=== PATIENT | male | born 1975 | race Caucasian/White ===

== ENCOUNTER 2019-10-16 10:59 | Emergency (ER) | payer SELFPAY ==
[~2019-10-16] VITALS: Ht 182.9 cm; Wt 123.7 kg
[2019-10-16 11:09] VITALS: BP 157/110
--- NOTE | 2019-10-16 11:24 | NUR ---
COUGH X 3 DAYS, LUNGS FEEL "WEAK" SORENESS IN CHEST WHEN COUGHING
== END 2019-10-16 12:04 | disposition home or self-care (01) ==
LOC: ED 11:40
DX: J45.30 Mild persistent asthma, uncomplicated (principal); J06.9 Acute upper respiratory infection, unspecified; I10 Essential (primary) hypertension; F17.200 Nicotine dependence, unspecified, uncomplicated
CPT/HCPCS: 71046; 93005; 99283; J7512

== ENCOUNTER 2020-05-22 09:46 | Emergency (ER) | payer OTHER ==
[~2020-05-22] VITALS: Ht 167.6 cm; Wt 113.4 kg
--- NOTE | 2020-05-22 10:18 | NUR ---
PT TO IMAGING
--- NOTE | 2020-05-22 10:19 | NUR ---
45 Y/O MALE PRESENTS TO ED WITH C/O ABDOMINAL PAIN. PER PT "I'M HAVING BOWEL ISSUES. IT'S BEEN SINCE LAST MONDAY, SO 11 DAYS. IT HURTS FROM THE TOP OF MY BELLY TO MY GENITALS. I TRIED ENEMA'S AND TUMERIC. I HAD A BM THIS MORNING BUT IT WASN'T VERY PRODUCTIVE. I CAN PEE OK, BUT MY BLADDER HURTS FROM THE PRESSURE. I DID START A NEW DIET." PT PLACED ON CONT PULSE OX,NIBP. NO C/O N/V/D, TRAUMA, SYNCOPE, CP, SOB.
[2020-05-22] MEDS ORDERED: MORPHINE SULFATE 4 MG/ML, 1ML ONE ×2 (10:26→11:45)
[2020-05-22] MEDS ORDERED: ONDANSETRON 2MG/ML, 2ML ONE (10:26)
--- NOTE | 2020-05-22 10:28 | NUR ---
pt back from imaging.
[2020-05-22] MEDS ORDERED: ONDANSETRON 2MG/ML, 2ML IVPush ONE (10:30)
[2020-05-22] MEDS ORDERED: SODIUM CHLORIDE 0.9% 1,000ML IVBOLUS ONE (10:30)
[2020-05-22] MEDS: MORPHINE SULFATE 4 MG/ML, 1ML IVPush PRN ×2 (10:35→11:47)
--- NOTE | 2020-05-22 10:37 | NUR ---
PIV ESTABLISHED. PT TOLERATED WITH NO COMPLICATIONS. MEDICATIONS ADMINISTERED PER ORDER.
--- NOTE | 2020-05-22 10:55 | NUR ---
PT EDUCATED REGARDING THE NEED FOR URINE. PT GIVEN URINAL.
[2020-05-22 11:01] LABS: BASOPHILS # (AUTO) 0.04 x10^3/uL (0-0.1); BASOPHILS % (AUTO) 0 % (0-1); EOSINOPHILS # (AUTO) 0.12 x10^3/uL (0-0.4); EOSINOPHILS % (AUTO) 1 % (1-7); LYMPHOCYTES # (AUTO) 2.14 x10^3/uL (1-3.4); LYMPHOCYTES % (AUTO) 15 % (22-44); MD NO; MEAN CORPUSCULAR HEMOGLOBIN 32.1 pg (27.5-34.5); MEAN CORPUSCULAR HGB CONC 33.2 g/dL (33.2-36.2); MEAN PLATELET VOLUME 7.6 fL (7.4-10.4); MONOCYTES # (AUTO) 0.87 x10^3/uL (0.2-0.8); MONOCYTES % (AUTO) 6 % (2-9); NEUTROPHILS # (AUTO) 10.76 x10^3/uL (1.8-6.8); NEUTROPHILS % (AUTO) 77 % (42-75); PLATELET COUNT 295 x10^3/uL (130-400); RED BLOOD COUNT 5.21 x10^6/uL (4.38-5.82); RED CELL DISTRIBUTION WIDTH 12.5 % (9.4-14.8)
[2020-05-22 11:09] LABS: ALBUMIN 3.8 g/dL (3.4-5.0); ANION GAP 7 mmol/L (5-15); CALCIUM 9.4 mg/dL (8.5-10.1); CHLORIDE 107 mmol/L (98-107)
[2020-05-22 11:27] LABS: ALANINE AMINOTRANSFERASE 33 U/L (12-78); ALKALINE PHOSPHATASE 73 U/L (45-117); BILIRUBIN,TOTAL 0.8 mg/dL (0.2-1.0); TOTAL PROTEIN 8.2 g/dL (6.4-8.2)
--- NOTE | 2020-05-22 11:30 | NUR ---
PT AMBULATORY WITH STEADY GAIT TO BATHROOM. PT GIVEN URINE SAMPLE CUP.
--- NOTE | 2020-05-22 11:40 | NUR ---
UA SENT TO LAB. PT AMBULATED WITH STEADY GAIT BACK FROM BATHROOM. PT STANDING NEXT TO [facility]. PT REATTACHED TO ALL MONITORS.
[2020-05-22 11:42] VITALS: BP 160/93
--- NOTE | 2020-05-22 11:46 | NUR ---
PT STATED THAT HE UNABLE TO HAVE A BM.
[2020-05-22 12:00] LABS: MICROSCOPIC INDICATED
[2020-05-22] MEDS ORDERED: OMNIPAQUE 350 MG/ML, 150 ML BOTTLE ONE (12:18)
--- NOTE | 2020-05-22 12:22 | NUR ---
PT AT IMAGING
--- NOTE | 2020-05-22 12:27 | NUR ---
PT BACK FROM IMAGING.
[2020-05-22] MEDS ORDERED: CEFOTETAN PMX 1GM/50ML 50 ML ONE (12:33)
[2020-05-22] MEDS ORDERED: METRONIDAZOLE PMX 500MG/100ML 100 ML ONE (12:39)
--- NOTE | 2020-05-22 12:55 | NUR ---
BEDSIDE REPORT TO NADIA MARIE.
[2020-05-22] MEDS ORDERED: CEFOTETAN PMX 2GM/50ML 50 ML IV ONE (13:00)
--- NOTE | 2020-05-22 13:12 | NUR ---
PT CALLED AND EXPRESSED IRRITATION AND AGGITATION REGARDING HAVING TO WAIT FOR CALL LIGHT TO BE ANSWERED. PT STATED THAT HE WANTED TO BE DISCONNECTED FROM ALL MONITORS AND IV GGTS IN ORDER TO MOVE HIS TRUCK OUT OF THE SECURITY PARKING LOT. CONTACTED SECURITY AND REQUESTED THAT VEHICLE BE MOVED. SECURITY STATED THEY WOULD COME MOVE THE PTS VEHICLE.
--- NOTE | 2020-05-22 13:18 | NUR ---
THIS RN IN TO DISCUSS WITH PT THAT SECURITY WOULD BE ABLE TO MOVE HIS VEHICLE FOR HIM. PT EXTERMELY AGGITATED AND THROWING CALL LIGHT AND HIS KEYS. PT STATING THAT HE WOULD NOT ALLOW ANYONE TO MOVE HIS VEHICLE FOR HIM, HE WOULD DO IT HIMSELF. ATTEMPTED TO EDUCATE PT ON ORDER TO ADMIT AND HIS IV MEDICATION CURRENTLY INFUSING/REASONING HE COULD NOT LEAVE THE HOSPITAL WITH IV INTACT. PT REFUSED INFORMATION AND STATED HE WAS CHECKING HIMSELF OUT. PT BEGAN RIPPING ALL MONITOR OFF. REQUESTED PT TO STOP AND ALLOW THIS RN TO REMOVE HIS IV FOR HIM. DISCUSSED WHAT AMA MEANT, PT STATED HE DID NOT CARE. IV REMOVED WITH TIP INTACT AND DRESSED SELF.
--- NOTE | 2020-05-22 13:20 | NUR ---
1315 CALL LIGHT ANSWERED. PT STATING "I NEED TO BE DISCONNECTED SO I CAN MOVE MY TRUCK OUT OF ER PARKING LOT". CONFIRMED WITH PT THAT VEHICLE IS PARKED IN ER DROP OFF AREA. PT INFORMED THAT SECURITY CAN MOVE VEHICLE AND THAT WE CANNOT ALLOW PT TO LEAVE ED WITH IV IN PLACE AND BECAUSE MORPHINE HAD BEEN ADMINISTERED EARLIER. PT STATES "NOBODY IS TOUCHING MY FUCKING TRUCK". PT AGITATED AND STARTS TAKING OFF MONITORING EQUIPMENT. ASSISTANCE IS NEEDED IN OTHER PT ROOM AND PT INFORMED THAT THIS RN WILL BE BACK IN 5 MINUTES TO DISCUSS FURTHER. 1320 SECURITY OUTSIDE OF PT ROOM, BRANDON TAKING IV OUT, THIS RN INFORMED PT IS CHECKING OUT AMA. THIS RN STATES AGAIN TO PT THAT HE IS CONSIDERED IMPAIRED TO DRIVE AND CANNOT LEAVE IN VEHICLE THAT [employer] WILL NEED TO BE CALLED. PT CONTINUES TO BE AGITATED AND SHOWS AN AGGRESSIVE PHYSICAL POSTURING TOWARD THIS RN AND STATES "I AM LEAVING". SECURITY AND BRANDON RN WITNESSED EVENT. SECURITY ESCORTS PT OUT.
--- NOTE | 2020-05-22 13:25 | NUR ---
SECURITY ESCORTED PT OUT OF ED. PT LEFT WITH STEADY GAIT, AGGITATED AND IN NO DISTRESS.
[2020-05-22] MEDS ORDERED: SODIUM CHLORIDE 0.9% 1,000 ML IV SCH (13:41)
[2020-05-22] MEDS ORDERED: METRONIDAZOLE PMX 500MG/100ML 100 ML IV ONE (14:00)
[2020-05-22] MEDS ORDERED: METRONIDAZOLE PMX 500MG/100ML 100 ML IV SCH (14:00)
[2020-05-22] MEDS ORDERED: ENALAPRILAT 1.25 MG/ML, 2ML IVPush PRN (14:00)
[2020-05-22] MEDS ORDERED: ONDANSETRON ODT 4 MG PO PRN (14:00)
[2020-05-22] MEDS ORDERED: HYDROcodone/APAP 5/325 TABLET PO PRN (14:00)
[2020-05-22] MEDS ORDERED: ACETAMINOPHEN 325 MG TABLET PO PRN (14:00)
[2020-05-22] MEDS ORDERED: DIPHENHYDRAMINE 25 MG CAPSULE PO PRN (14:00)
[2020-05-22] MEDS ORDERED: CEFTRIAXONE PMX 2GM/50ML 50 ML IV SCH (14:00)
[2020-05-22] MEDS ORDERED: ONDANSETRON 2MG/ML, 2ML IVPush PRN (14:00)
[2020-05-22] MEDS ORDERED: morphine SULFATE 10 MG/ML, 1ML IVPush PRN (14:00)
[2020-05-22] MEDS ORDERED: ENOXAPARIN 40 MG/0.4 ML SQ SCH (14:00)
[2020-05-22] MEDS ORDERED: LISI1TAB20 PO (16:09)
[2020-05-22] MEDS ORDERED: ALBU18HF INH (16:09)
[2020-05-22] MEDS ORDERED: DICL112S2 TD (16:09)
[2020-05-22] MEDS ORDERED: GABA600T7 PO (16:09)
[2020-05-22] MEDS ORDERED: BACL20TA PO (16:09)
[2020-05-22] MEDS ORDERED: ALBU2.5V11 NEB (16:09)
[2020-05-22] MEDS ORDERED: FAMOTIDINE 20 MG/2 ML IVPush SCH (21:00)
[2020-05-23] MEDS ORDERED: SENNA/DOCUSATE TABLET PO SCH (09:00)
== END 2020-05-22 13:25 | disposition home or self-care (01) ==
LOC: ED 10:48 → SUATTDRO 13:39 → ORIP 13:41 → UNDOADMIN 13:41 → ORIP 06-03 19:42
PROVIDERS: ATTEND Hospitalist
DX: K57.20 Diverticulitis of large intestine with perforation and abscess without bleeding (principal); D72.829 Elevated white blood cell count, unspecified; I10 Essential (primary) hypertension
CPT/HCPCS: 36415; 74021; 74177; 80053; 81001; 83690; 85025; 96361; 96374; 96375; 96376; 99285; J2270; J2405; J7030; Q9967

== ENCOUNTER 2020-05-22 15:31 | Inpatient (IN) | payer SELFPAY ==
[~2020-05-22] VITALS: Ht 182.9 cm; Wt 114.5 kg
[2020-05-22] MEDS ORDERED: ALBU2.5V11 NEB (16:09)
[2020-05-22] MEDS ORDERED: LISI1TAB20 PO (16:09)
[2020-05-22] MEDS ORDERED: GABA600T7 PO (16:09)
[2020-05-22] MEDS ORDERED: ALBU18HF INH (16:09)
[2020-05-22] MEDS ORDERED: DICL112S2 TD (16:09)
[2020-05-22] MEDS ORDERED: BACL20TA PO (16:09)
[2020-05-22] MEDS ORDERED: CEFTRIAXONE PMX 2GM/50ML 50 ML IV SCH (16:30)
[2020-05-22] MEDS ORDERED: SODIUM CHLORIDE 0.9% 1,000 ML IV SCH (16:33)
[2020-05-22] MEDS ORDERED: ENALAPRILAT 1.25 MG/ML, 2ML IVPush PRN (17:00)
[2020-05-22] MEDS ORDERED: BACLOFEN 10 MG TABLET PO PRN (17:00)
[2020-05-22] MEDS ORDERED: CEFTRIAXONE PMX 2GM/50ML 50 ML ONE (17:00)
[2020-05-22] MEDS ORDERED: ALBUTEROL HFA 90 MCG/SPRAY INH SCH (17:00)
[2020-05-22 17:30] VITALS: BP 137/88
[2020-05-22] MEDS: morphine SULFATE 10 MG/ML, 1ML IVPush PRN ×2 (17:46→23:30)
[2020-05-22 18:28] VITALS: BP 145/82
[2020-05-22] MEDS: METRONIDAZOLE PMX 500MG/100ML 100 ML IV SCH (19:48)
[2020-05-22] MEDS: GABAPENTIN 300 MG CAPSULE PO SCH (19:48)
[2020-05-22 19:53] VITALS: BP 158/69
[2020-05-22] MEDS: HYDROmorphone 1 MG/ML, 1ML INJ IV PRN (22:41)
[2020-05-23 00:48] VITALS: BP 142/94
[2020-05-23] MEDS: morphine SULFATE 10 MG/ML, 1ML IVPush PRN (03:00)
[2020-05-23] MEDS: METRONIDAZOLE PMX 500MG/100ML 100 ML IV SCH ×2 (03:56→12:28)
[2020-05-23] MEDS: HYDROmorphone 1 MG/ML, 1ML INJ IV PRN (04:02)
[2020-05-23 05:03] LABS: BASOPHILS # (AUTO) 0.13 x10^3/uL (0-0.1); BASOPHILS % (AUTO) 1 % (0-1); EOSINOPHILS # (AUTO) 0.15 x10^3/uL (0-0.4); EOSINOPHILS % (AUTO) 1 % (1-7); LYMPHOCYTES # (AUTO) 1.58 x10^3/uL (1-3.4); LYMPHOCYTES % (AUTO) 13 % (22-44); MD NO; MEAN CORPUSCULAR HEMOGLOBIN 32.5 pg (27.5-34.5); MEAN CORPUSCULAR HGB CONC 33.6 g/dL (33.2-36.2); MEAN CORPUSCULAR VOLUME 96.9 fL (81-97); MEAN PLATELET VOLUME 7.1 fL (7.4-10.4); MONOCYTES # (AUTO) 0.85 x10^3/uL (0.2-0.8); MONOCYTES % (AUTO) 7 % (2-9); NEUTROPHILS # (AUTO) 9.85 x10^3/uL (1.8-6.8); NEUTROPHILS % (AUTO) 78 % (42-75); PLATELET COUNT 276 x10^3/uL (130-400); RED BLOOD COUNT 4.55 x10^6/uL (4.38-5.82); RED CELL DISTRIBUTION WIDTH 12.6 % (9.4-14.8)
[2020-05-23 05:18] LABS: CHLORIDE 107 mmol/L (98-107)
[2020-05-23 05:39] LABS: ALANINE AMINOTRANSFERASE 27 U/L (12-78); ALBUMIN 3.2 g/dL (3.4-5.0); ALKALINE PHOSPHATASE 62 U/L (45-117); ANION GAP 8 mmol/L (5-15); BILIRUBIN,TOTAL 0.5 mg/dL (0.2-1.0); CALCIUM 8.7 mg/dL (8.5-10.1); CREATININE 0.84 mg/dL (0.7-1.3); TOTAL PROTEIN 7.1 g/dL (6.4-8.2)
[2020-05-23] MEDS: NICOTINE 21 MG/24 HR PATCH.TD24 TD SCH ×2 (06:30→08:49)
[2020-05-23 07:08] VITALS: BP 102/64
[2020-05-23] MEDS ORDERED: POTASSIUM CHLORIDE 20 MEQ, MAGNESIUM SULFATE 1 GM, MVI ADULT 10 ML, THIAMINE 200 MG, FO... IV SCH (07:30)
[2020-05-23] MEDS ORDERED: LORazepam 2 MG/ML, 1ML IV PRN ×5 (07:30)
[2020-05-23] MEDS ORDERED: PROMETHAZINE 25 MG/ML, 1ML IM PRN (07:30)
[2020-05-23] MEDS ORDERED: THIAMINE 200 MG in DEXTROSE 5% 50 ML IVPB ONE (07:30)
[2020-05-23] MEDS ORDERED: LORazepam 0.5MG TABLET PO PRN (07:30)
[2020-05-23] MEDS ORDERED: LORazepam 1MG TABLET PO PRN ×4 (07:30)
[2020-05-23 07:57] VITALS: BP 155/94
[2020-05-23] MEDS ORDERED: THIAMINE 100MG TABLET PO ONE (08:00)
[2020-05-23] MEDS: GABAPENTIN 300 MG CAPSULE PO SCH (08:43)
[2020-05-23] MEDS ORDERED: TEMPLATE NON-FORMULARY MED. (Lisinopril/Hydrochlorothiazide** (Lisinopril-Hctz 20-25 Mg Ta PO SCH (09:00)
[2020-05-23] MEDS ORDERED: HYDROCHLOROTHIAZIDE 25 MG TABLET PO SCH (09:00)
[2020-05-23] MEDS ORDERED: DICLOFENAC SODIUM TP SCH (09:00)
[2020-05-23] MEDS ORDERED: LISINOPRIL 20 MG TABLET PO SCH (09:00)
[2020-05-23] MEDS ORDERED: BACLOFEN 10 MG TABLET PO SCH (09:00)
[2020-05-23] MEDS ORDERED: NICOTINE 21 MG/24 HR PATCH.TD24 TD SCH (09:00)
[2020-05-23 14:01] VITALS: BP 173/80
[2020-05-23 14:07] VITALS: BP 170/116
[2020-05-23] MEDS ORDERED: HYDROcodone/APAP 5/325 TABLET PO PRN (14:30)
[2020-05-23] MEDS ORDERED: KETOROLAC 30 MG/1 ML IVPush SCH (14:30)
== END 2020-05-23 16:45 | disposition left against medical advice (07) | DRG 392 ==
LOC: ED 15:47 → 3N 17:16
PROVIDERS: ADMIT Internal Medicine; ATTEND Internal Medicine
DX: K57.20 Diverticulitis of large intestine with perforation and abscess without bleeding (principal); Z68.34 Body mass index [BMI] 34.0-34.9, adult; F17.210 Nicotine dependence, cigarettes, uncomplicated; F41.9 Anxiety disorder, unspecified; G89.29 Other chronic pain; I10 Essential (primary) hypertension; J45.909 Unspecified asthma, uncomplicated; B19.20 Unspecified viral hepatitis C without hepatic coma; E66.01 Morbid (severe) obesity due to excess calories; M54.5 Low back pain; Z03.818 Encounter for observation for suspected exposure to other biological agents ruled out; Z83.3 Family history of diabetes mellitus
CPT/HCPCS: 36415; 80053; 83735; 84100; 85025; 87635; G0378; J0696; J1170; J1885; J3411; J3475; J3480; J2060; J2270; J7030; Q0177